=== PATIENT | female | born 1950 | race Caucasian/White ===

== ENCOUNTER 2017-04-21 05:39 | Inpatient (IN) | END 2017-04-22 14:20 | disposition home or self-care (01) | DRG 470 ==

== ENCOUNTER → 2018-06-19 | Outpatient (CLI) | payer MEDICARE, OTHER ==
[~2018-06-19] MED LIST: ESTRADIOL PATCH; GABA-526 PO; METO-448 PO; PROG100C5 PO; SUMA50TA3 PO; ZOLP5TAB7 PO
--- NOTE | 2018-06-19 10:22 | PN ---
Date/Time of Note Date/Time of Note DATE: 06/19/18 TIME: 10:15 Assessment/Plan VTE Prophylaxis Pharmacological prophylaxis: other Assessment/Plan Assessment/Plan 68-year-old female with osteoarthritis of her right hip. She has failed conservative treatment for more than 1 year including medications, injections and physical therapy. The pain is interfering with routine activities and with sleep. The patient would like to proceed with right total hip replacement. Risks and benefits were discussed. Implant materials and surgical techniques were discussed. The patient will be scheduled for right total hip replacement in the next 6-8 weeks. Subjective 24 Hr Interval Summary Free Text/Dictation Bakari Turk is a 68-year-old female who is here for evaluation of right hip pain. The pain has been ongoing for at least 2 years. The pain is increased to a point where it is interfering with routine activities. The pain is located in the groin and radiates down the thigh. The patient also has back problems with previous back surgery. She also has a left hip replacement that was done about 1 year ago. The left hip is doing well. She does feel that the left lower extremity slightly longer than the right. She has a history of previous shoulder surgery as well. She had a right hip arthroscopy about 1-1/2 years ago. She is currently on anti-inflammatory medication. The patient is here for further management Additional Comments Past history is significant for multiple operations including left shoulder arthroscopy, anterior posterior lumbar fusion, hand surgery, cervical spine surgery, right hip labral repair and left total hip replacement Medications include sumatriptan, zolpidem, estrogen and progesterone, metoprolol, meloxicam. She occasionally takes Tylenol arthritis Allergies include cephalosporins, opiates, Cipro and sulfa, Steri-Strips Review of systems is positive for multiple joint pains and back pain. Negative for chest pain, shortness of breath Exam/Review of Systems Exam Vitals Vital signs are stable with blood pressure 130/67, temperature 98.1, respiration 12 and pulse rate 54. Patient is 5 foot 5 and 130 pounds Exam Examination shows a pleasant female. She walks with a slight limp on her right side. Left lower extremity is 5 mm longer than the right. The patient points out that the contour of the left hip is different from that on the right with the greater trochanter being more prominent. Range of motion of the hips is terminally restricted. Right hip range of motion is painful at extremes of rot ation. There is no neurovascular deficit. X-rays of the right hip as well as arthroscopy pictures were reviewed with the patient. There is significant osteoarthritis with loss of joint space and subchondral sclerosis. Arthroscopy pictures show full-thickness loss of cartilage. Lumbar fusion is evident. The left hip replacement appears to be well fixed. There is a small pelvic tilt. LILY ROD Jun 19, 2018 10:22
== END | disposition home or self-care (01) ==
LOC: HKI 10:12
PROVIDERS: ATTEND Orthopaedic Surgery
DX: M16.11 Unilateral primary osteoarthritis, right hip (principal); Z96.642 Presence of left artificial hip joint; Z98.1 Arthrodesis status; Z88.2 Allergy status to sulfonamides
CPT/HCPCS: G0463

== ENCOUNTER 2018-08-10 05:39 | Inpatient (IN) | payer MEDICARE, OTHER ==
[~2018-08-10] VITALS: Ht 165.1 cm; Wt 60.0 kg
[2018-08-10] VITALS (30 sets, daily range): BP systolic 92–123; BP diastolic 44–76; PULSE 56–78; RESP 12–22; Ht 165.1 cm; Wt 60.0 kg
[2018-08-10] MEDS ORDERED: MELO7.5T38 PO (05:47)
[2018-08-10] MEDS ORDERED: CEFAZOLIN 2 GM/50 ML (PMX) 50 ML (FOR WT < 120 KG) IVPB ONE (06:00)
[2018-08-10] MEDS: LACTATED RINGER'S 1,000 ML IV SCH ×4 (06:24→22:18)
[2018-08-10] MEDS ORDERED: ACETAMINOPHEN 1000MG/100ML IV 100 ML IVPB ONE (06:30)
[2018-08-10] MEDS ORDERED: ESTR-32 TD (06:52)
[2018-08-10] MEDS ORDERED: BACITRACIN 50000 UNITS INJ ONE (06:59)
[2018-08-10] MEDS ORDERED: DESFLURANE 15 MIN ONE (07:00)
[2018-08-10] MEDS ORDERED: EPHEDrine 25 MG/5 ML SYG ONE (07:00)
[2018-08-10] MEDS ORDERED: POLYMYXIN B 500000 UNIT INJ ONE (07:01)
--- NOTE | 2018-08-10 07:17 | PREAC ---
Date/Time of Note Date/Time of Note DATE: 08/10/18 TIME: 07:12 Anesthesia Eval and Record Evaluation Time Pre-Procedure Interview DATE: 08/10/18 TIME: 07:12 Age 68 Sex female NPO: 8 hrs Preoperative diagnosis Degenerative Joint Disease Planned procedure Total Hip Arthroplasty Past Medical History Past Medical History: Includes Cardio: HTN (Contrioled with meds) Surgery & Anesthesia Issues No known issue Meds Anticoagulation: No Beta Micha within 24 hr: Yes Reported Medications Estradiol (Estradiol) 1 Each Patch.tdsw, 1 EACH TD TWICE WEEKLY 0.1MG 08/10/18 Meloxicam* (Meloxicam*) 7.5 Mg Tablet, 7.5 MG PO BID, #30 TAB 08/10/18 Metoprolol Tartrate* (Lopressor*) 25 Mg Tab, 25 MG PO BID, #60 TAB 04/19/17 Progesterone,Micronized* (Progesterone*) 100 Mg Capsule, 100 MG PO HS, CAP 04/19/17 Zolpidem Tartrate* (Zolpidem Tartrate*) 5 Mg Tablet, 2.5 MG PO QHS PRN for INSOMNIA, #30 TAB 04/19/17 Sumatriptan Succinate* (Sumatriptan Succinate*) 50 Mg Tablet, 50 MG PO BID PRN for MIGRAINE HEADACHE, TAB May repeat after 2 hours if needed; MAX 200 mg/24 hours 04/19/17 Gabapentin* (Gabapentin*) 600 Mg Tablet, 600 MG PO BID, #60 TAB 04/19/17 Discontinued Reported Medications [Estradiol Patch] No Conflict Check, 1 04/19/17 Current Medications Ropivacaine/ Clonidine/ Epinephrine/ Ketorolac Tromethamine/ Sodium Chloride INTRA-OP ONCE IRR ; Start 08/10/18 at 07:30; Stop 08/10/18 at 07:31 Lactated Ringer's 1,000 ml @ 125 mls/hr Q8H IV Last administered on 08/10/18at 06:24; Admin Dose 125 MLS/HR; Start 08/10/18 at 07:30; Stop 08/10/18 at 19:30 Tranexamic Acid 100 ml @ 200 mls/hr AT INCISION ONCE IVPB ; Start 08/10/18 at 07:30; Stop 08/10/18 at 07:59 Tranexamic Acid 100 ml @ 330 mls/hr AT CLOSURE ONCE IVPB ; Start 08/10/18 at 07:30; Stop 08/10/18 at 07:48 Dexamethasone (Decadron) 4 mg ONCE ONCE IV Last administered on 08/10/18at 06:24; Admin Dose 4 MG; Start 08/10/18 at 07:30; Stop 08/10/18 at 07:31 Meds reviewed: Yes Allergies Coded Allergies: Sulfa (Sulfonamide Antibiotics) (Verified Allergy, Mild, ITCHING AND RASH, 08/10/18) adhesive tape (Unverified Allergy, Unknown, 08/10/18) Cephalosporins (Verified Adverse Reaction, Intermediate, HEADACHE AND DIZZINES, 08/10/18) ciprofloxacin (Verified Adverse Reaction, Mild, HEADACHE, 08/10/18) codeine (Unverified Adverse Reaction, Unknown, NAUSEA VOMITING, 08/10/18) Allergies Reviewed: Yes Labs/Studies Labs Reviewed: Reviewed by anesthesiologist test: N/A Pre-procedure Exam Last vitals Vital Signs Date Temp Pulse Resp B/P (MAP) Pulse Ox O2 O2 Flow FiO2 Time Delivery Rate 08/10/18 98.5 62 18 123/61 96 Room Air 06:29 (81) Airway: Adequate mouth opening Mallampati: Mallampati II Teeth: Normal Lung: Normal Heart: Normal ASA Physical Status ASA physical status: 3 Emergency: None Planned Anesthetic General/MAC: LMA Planned Pain Management Sub-arachniod narcotics Pre-operative Attestations Prior to commencing anesthesia and surgery, the patient was re-evaluated, there was verification of: *The patient's identity *The results of appropriate recent lab work and preoperative vital signs *The above evaluation not changing prior to induction *Anesthetic plan, risk benefits, alternative and complications discussed with patient/family; questions answered; patient/family understands, accepts and wishes to proceed. ALYSE TRIPP MD August 10, 2018 07:16
[2018-08-10] MEDS ORDERED: PROPOFOL 20 ML ONE (07:23)
[2018-08-10] MEDS ORDERED: PHENYLephrine (100 MCG/ML) 10ML SYG ONE (07:24)
[2018-08-10] MEDS ORDERED: MIDAZOLAM 1 MG/ML 2 ML INJ ONE (07:24)
[2018-08-10] MEDS ORDERED: TRANEXAMIC ACID 1GM/100ML(PMX) 200 ML ONE (07:24)
[2018-08-10] MEDS ORDERED: VANCOMYCIN 1 GM (PMX) 250 ML ONE (07:24)
[2018-08-10] MEDS ORDERED: TRANEXAMIC ACID 1GM/100ML(PMX) 100 ML AT INCISION X1 IVPB ONE (07:30)
[2018-08-10] MEDS ORDERED: DEXAMETHASONE 4 MG/ML 1 ML INJ IV ONE (07:30)
[2018-08-10] MEDS ORDERED: ACETAMINOPHEN 500 MG TAB PO ONE (07:30)
--- NOTE | 2018-08-10 07:41 | HPN ---
Date/Time of Note Date/Time of Note DATE: 08/10/18 TIME: 07:41 Interval H&P Admission Note Pt. seen H&P reviewed: No system changes LILY ROD August 10, 2018 07:41
[2018-08-10] MEDS ORDERED: DEXAMETHASONE 4 MG/ML 5 ML INJ ONE (08:32)
[2018-08-10] MEDS ORDERED: KETOROLAC 30 MG INJ ONE (09:07)
[2018-08-10] MEDS ORDERED: KETOROLAC 30 MG INJ IV PRN (09:30)
[2018-08-10] MEDS ORDERED: ACETAMINOPHEN 500 MG TAB PO PRN (09:30)
[2018-08-10] MEDS: TRANEXAMIC ACID 1GM/100ML(PMX) 100 ML AT CLOSURE X1 IVPB ONE ×2 (09:35)
[2018-08-10] MEDS ORDERED: EPINEPHrine 0.1 MG/ML SYG ONE (09:39)
--- NOTE | 2018-08-10 09:44 | SIPON ---
Date/Time of Note Date/Time of Note DATE: 08/10/18 TIME: 09:43 Operative Report Preoperative Diagnosis Right hip osteoarthritis Postoperative Diagnosis Same Operation/Procedure Performed Right total hip replacement Surgeon see signature line assistant store leader MILA Aguilar Anesthesia: spinal Estimated blood loss: 150 - 200 ml's Transfusion Required none Specimen Bone Grafts/Implants Michael hip, size 5 stem, 52 mm [place] cup, 36 mm +5 ceramic head Complications none LILY ROD August 10, 2018 09:44
--- NOTE | 2018-08-10 09:47 | OPR ---
Date/Time of Note Date/Time of Note DATE: 08/10/18 TIME: 09:44 Operative Report Procedure Date: August 10, 2018 Preoperative Diagnosis Right hip osteoarthritis Postoperative Diagnosis Same Operation/Procedure Performed Right total hip replacement Surgeon see signature line [place] Performer MILA Aguilar Anesthesia Type: spinal Estimated Blood Loss: 150 - 200 ml's Transfusion none Specimen Bone Grafts/Implants Michael hip, size 5 stem, 52 mm [place] cup, 36+5 ceramic head Tubes/Drains None Complications none Pt Condition Post Procedure: stable Disposition: PACU Indications The patient is a 68-year-old female with advanced osteoarthritis of her right hip Procedure Description Patient was placed supine on the operating room table. The right hip was prepped and draped in usual manner. The right hip was approached anteriorly. The plane between the sartorius and tensor fascia baldomero was developed in a blunt fashion. Significant scarring was noted from previous surgery. Anterior hip capsule was opened and advanced osteoarthritis was encountered with loss of cartilage on the femoral head as well as shallow acetabulum. Evidence of labral repair was noted. The neck cut was made 1.5 cm proximal to the lesser trochanter as previously templated. Reaming of the acetabulum was done with [place] reamers up to a size 51. A 52 trial cup was well fitting. The 52 [place] cup was placed in 40 degrees of abduction and 20 degrees of anteversion. One screw was used to enhance fixation. A liner was placed to accommodate a 36 mm femoral head. The IM canal of the femur was prepared for Actis stems. A size 5 stem was well fitting. This was placed with a standard offset neck and 36 mill meter head for a trial reduction. The reduction was sta ble. Leg length was felt to be equal. X-rays confirm proper alignment of the implants and leg length. Offset was symmetrical. The hip was irrigated and trials were removed. The final implants were placed and the wound injected with pain cocktail. Hemostasis was confirmed with aqua Mantis and the wound closed in layers using #1 strata fix for deep fascia, 2-0 Vicryl for subcutaneous tissue and 3-0 Monocryl for the skin. Patient was transferred to the recovery room in stable condition LILY ROD August 10, 2018 09:47
[2018-08-10] MEDS ORDERED: NALOXONE (0.4 MG/ML) INJ IV PRN (10:00)
[2018-08-10] MEDS ORDERED: NACL 0.9% 3 ML SYG IV SCH (10:00)
[2018-08-10] MEDS ORDERED: oxyCODONE 5 MG TAB PO PRN (10:00)
--- NOTE | 2018-08-10 10:42 | PAC ---
Date/Time of Note Date/Time of Note DATE: 08/10/18 TIME: 10:41 Post-Anesthesia Notes Post-Anesthesia Note Last documented vital signs Vital Signs Date Temp Pulse Resp B/P (MAP) Pulse Ox O2 O2 Flow FiO2 Time Delivery Rate 08/10/18 98.5 62 18 123/61 96 Room Air 06:29 (81) Activity: WNL Respiratory function: WNL Cardiovascular function: WNL Mental status: Baseline Pain reasonably controlled: Yes Hydration appropriate: Yes Nausea/Vomiting absent: Yes ALYSE TRIPP MD August 10, 2018 10:42
[2018-08-10] MEDS: CLINDAMYCIN 900 MG/D5W (PMX) 50 ML IVPB SCH ×2 (11:27→20:29)
[2018-08-10] MEDS: KETOROLAC 15 MG INJ IV PRN ×3 (11:58→23:09)
[2018-08-10] MEDS: oxyCODONE 5 MG TAB PO PRN ×3 (11:59→20:18)
[2018-08-10] MEDS ORDERED: SUMATRIPTAN 50 MG TAB PO PRN (12:00)
[2018-08-10] MEDS ORDERED: ZOLPIDEM 5 MG TAB PO PRN (12:00)
[2018-08-10] MEDS ORDERED: GABAPENTIN 100 MG CAP PO SCH (13:00)
[2018-08-10] MEDS: GABAPENTIN 100 MG CAP PO SCH ×2 (13:36→20:29)
[2018-08-10] MEDS ORDERED: DIPHENHYDRAMINE 50 MG INJ IV PRN (16:00)
[2018-08-10] MEDS ORDERED: PROGESTERONE 100 MG CAP PO SCH (21:00)
[2018-08-10] MEDS: METOPROLOL 25 MG TAB PO SCH (21:00)
[2018-08-10] MEDS ORDERED: GABAPENTIN 300 MG CAP PO SCH (21:00)
[2018-08-10] MEDS ORDERED: MAGNESIUM HYDROXIDE 30ML CUP PO PRN (21:00)
--- NOTE | 2018-08-10 23:45 | HP ---
DATE OF ADMISSION: 08/10/2018 CHIEF COMPLAINT: Right hip pain. HISTORY OF PRESENT ILLNESS: The patient is a 68-year-old female with a history of osteoart hritis, bilateral hip who underwent left hip replacement by Dr. Josiah love in April 2017. The patient subsequently saw Dr. Rod for her right hip osteoarthritis with worsening pain. The p josee underwent right total hip replacement. The patient also has history of hypertension and has g ross post-menopausal symptoms for which she takes estrogen patch and p.o. progesterone. The patient denies any chest pain or shortness of breath. No history of nausea, vomiting. No history of abdomin al pain. No history of leg edema. No history of numbness, tingling in any extremities. No history of any gross focal deficit, although exam was limited due to recent surgery. No history of cough. N o history of recent dysuria or hematuria. No history of dizziness or syncope. Other than postoperat latricia pain, rest of review of systems unremarkable. REVIEW OF SYSTEMS: A total of 12 systems were reviewed, all pertinent positive and negative findings have been described in HPI. Rest of the review of systems is unremarkable. PAST MEDICAL HISTORY: As stated above. In addition, the patient has a history of migraine headache for which she uses Imitrex on p.r.n. basis. PAST SURGICAL HISTORY: The patient is status post lumbar laminectomy in 2002, lumbar fusion in 2012, also had shoulder surgery for spurs back in 2005. FAMILY HISTORY: Father is . Mother is of natural causes. MEDICATIONS: Medications list reviewed. SOCIAL HISTORY: No smoking, alcohol; a glass of wine every night. ALLERGIES: 1. SULFA. 2. KEFLEX. 3. PENICILLIN. 4. ADHESIVE TAPE. 5. CIPRO. 6. CODEINE. PHYSICAL EXAMINATION: GENERAL: The patient was awake, alert, fairly oriented. VITAL SIGNS: Temperature 97.9, pulse 73, respirations 17, blood pressure 96/55, O2 saturation 96 on room air. HEENT: Atraumatic, normocephalic. Conjunctivae are normal. Extraocular movements are intact. Orop harynx is grossly negative. Pupils are round and react to light. NECK: Supple, no mass, no thyromegaly. CHEST: Fairly clear. No use of accessory muscles. CARDIOVASCULAR: S1, S2 normal. No murmur. ABDOMEN: Soft, nondistended, nontender. Bowel sounds plus. EXTREMITIES: No leg edema. Pedal pulse palpable. SKIN: Without acute rash. NEUROLOGIC: The patient is awake, alert, fairly oriented with no gross focal deficit, although exam was limited due to the patient has recently has surgery. LABORATORY DATA: Recent labs done as an outpatient revealed WBC is 7.7, hemoglobin 10.4, platelet 17 8, ALT 7, AST 17, BUN 9, creatinine 0.7, glucose 89. Sodium 138, potassium 3.7. TSH 3. Free T4 8. IMAGING STUDIES: EKG normal sinus rhythm, no acute ST changes. Chest x-ray: No acute cardiopulmona ry disease. IMPRESSION: 1. Right hip osteoarthritis status post right total knee replacement. The patient will be started o n Celebrex, gabapentin, oxycodone and IV Toradol for pain control. We will also give Protonix for GI prophylaxis. 2. Hypertension. We will resume Lopressor tomorrow since today her blood pressure is less than 100. We will resume Lopressor as tolerated. 3. Postmenopausal. The patient already has a Estradiol patch and we will continue progesterone upon discharge. 4. Migraine, stable. Continue Imitrex on p.r.n. basis. 5. For deep vein thrombosis prophylaxis, the patient has been started on aspirin 81 mg twice a day. Plan of care discussed with patient's and nursing staff in recovery room. We will do follow up CBC and BMP tomorrow and PT evaluation is pending. We will continue to follow her from [facility]. Further recommendations will depend on the patient's hospital course and recommendation of Dr. Griffin from orthopedic standpoint. Dictated By: CHRISTI BLOOD MD AB/YADIEL Conf#: [id number] DID#: [id number] CC: CHRISTI BLOOD MD; LILY ROD MD;*End*
[2018-08-11] MEDS: oxyCODONE 5 MG TAB PO PRN ×3 (03:39→12:03)
[2018-08-11 04:12] VITALS: BP 110/53; PULSE 72; RESP 18
[2018-08-11] MEDS ORDERED: PANTOPRAZOLE (EC) 40 MG TAB PO SCH (06:00)
[2018-08-11 08:03] VITALS: BP 104/53; PULSE 71; RESP 18
[2018-08-11] MEDS ORDERED: DOCUSATE SODIUM 100 MG CAP PO SCH (09:00)
[2018-08-11] MEDS ORDERED: ASPIRIN (EC) 81 MG TAB PO SCH (09:00)
[2018-08-11] MEDS ORDERED: ESTRADIOL 0.1 MG/24 HR PATCH TRANSDERM SCH (09:00)
[2018-08-11] MEDS: GABAPENTIN 100 MG CAP PO SCH ×2 (09:38→12:52)
[2018-08-11] MEDS: METOPROLOL 25 MG TAB PO SCH (09:39)
[2018-08-11] MEDS: KETOROLAC 15 MG INJ IV PRN (09:43)
[2018-08-11] MEDS ORDERED: ONDANSETRON 4 MG INJ IV PRN (10:00)
[2018-08-11] MEDS: LACTATED RINGER'S 1,000 ML IV SCH (10:48)
[2018-08-11] MEDS ORDERED: CELECOXIB 100 MG CAP PO SCH (11:00)
--- NOTE | 2018-08-11 11:38 | PDOCDIS ---
Discharge Instructions CONDITION [id number] Patient Condition: [id number] Stable HOME CARE INSTRUCTIONS: [id number] Diet Instructions: [id number] Regular ACTIVITY: [id number] Activity Restrictions: [id number] Slowly Increase Activity Rest between Activity Avoid heavy lifting Do not Drive Avoid Heavy Housework [id number] Bathing Restrictions: [id number] Sponge Bath FOLLOW UP/APPOINTMENTS Follow-up Plan FU with PMD FU with ortho-as recommended Call 911 or go to the nearest hospital if symptoms get worse Patient verbalized understanding dc instructions MARCIA CHÁVEZ August 11, 2018 11:38
--- NOTE | 2018-08-11 11:43 | PN ---
Date/Time of Note Date/Time of Note DATE: 08/11/18 TIME: 11:42 Assessment/Plan VTE Prophylaxis Risk score (from Nsg)>0 risk: 5 SCD applied (from Nsg): Yes Lines/Catheters IV Catheter Type (from Nrsg): Saline Lock Urinary Cath still in place: No Assessment/Plan Assessment/Plan 1. Right hip osteoarthritis status post right total knee replacement. The patient will be started on Celebrex, gabapentin, oxycodone and IV Toradol for pain control. We will also give Protonix for GI prophylaxis. 2. Hypertension. 3. Postmenopausal. 4. Migraine, stable. Continue Imitrex on p.r.n. basis. 5. For deep vein thrombosis prophylaxis, the patient has been started on aspirin 81 mg twice a day. Result Diagram: 08/11/1840808/11/18408 Results 24hrs Laboratory Tests Test 08/11/18 04:09 08/11/18 06:46 White Blood Count 14.4 #H Red Blood Count 3.55 L Hemoglobin 11.7 L Hematocrit 33.3 L Mean Corpuscular Volume 93.8 Mean Corpuscular Hemoglobin 33.0 Mean Corpuscular Hemoglobin Concent 35.1 Red Cell Distribution Width 12.3 Platelet Count 164 Mean Platelet Volume 11.2 H Immature Granulocytes % 0.500 H Neutrophils % 81.9 H Lymphocytes % 10.5 L Monocytes % 6.9 Eosinophils % 0.1 Basophils % 0.1 Nucleated Red Blood Cells % 0.0 Immature Granulocytes # 0.070 H Neutrophils # 11.8 H Lymphocytes # 1.5 Monocytes # 1.0 H Eosinophils # 0.0 Basophils # 0.0 Nucleated Red Blood Cells # 0.0 Sodium Level 137 Potassium Level 4.0 Chloride Level 105 Carbon Dioxide Level 27 Anion Gap 5 Blood Urea Nitrogen 13 Creatinine 0.66 Est Glomerular Filtrat Rate mL/min > 60 Glucose Level 101 Calcium Level 8.4 Lab Scanned Report REFERENCE LAB Exam/Review of Systems Exam Vitals Vital Signs Date Temp Pulse Resp B/P (MAP) Pulse Ox O2 O2 Flow FiO2 Time Delivery Rate 08/11/18 98.3 71 18 104/53 96 Room Air 08:03 (70) 08/10/18 2.0 10:46 Intake and Output 08/10/18 08/10/18 08/11/18 1515:00 23:00 07:00 IntakeIntake Total 2200 ml 1130 ml 1500 ml OutputOutput Total 20 ml BalanceBalance 2180 ml 1130 ml 1500 ml Results Results 24hrs Laboratory Tests Test 08/11/18 04:09 08/11/18 06:46 White Blood Count 14.4 #H Red Blood Count 3.55 L Hemoglobin 11.7 L Hematocrit 33.3 L Mean Corpuscular Volume 93.8 Mean Corpuscular Hemoglobin 33.0 Mean Corpuscular Hemoglobin Concent 35.1 Red Cell Distribution Width 12.3 Platelet Count 164 Mean Platelet Volume 11.2 H Immature Granulocytes % 0.500 H Neutrophils % 81.9 H Lymphocytes % 10.5 L Monocytes % 6.9 Eosinophils % 0.1 Basophils % 0.1 Nucleated Red Blood Cells % 0.0 Immature Granulocytes # 0.070 H Neutrophils # 11.8 H Lymphocytes # 1.5 Monocytes # 1.0 H Eosinophils # 0.0 Basophils # 0.0 Nucleated Red Blood Cells # 0.0 Sodium Level 137 Potassium Level 4.0 Chloride Level 105 Carbon Dioxide Level 27 Anion Gap 5 Blood Urea Nitrogen 13 Creatinine 0.66 Est Glomerular Filtrat Rate mL/min > 60 Glucose Level 101 Calcium Level 8.4 Lab Scanned Report REFERENCE LAB Medications Medication Current Medications Acetaminophen (Tylenol Tab) 500 mg Q4H PRN PO .PAIN 1-3; Start 08/10/18 at 09:30 Lactated Ringer's 1,000 ml @ 80 mls/hr [id number] IV Last administered on 08/10/18at 17:31; Admin Dose 80 MLS/HR; Start 08/10/18 at 09:48 Oxycodone HCl (Roxicodone) 10 mg Q4H PRN PO .PAIN Last administered on 08/11/18at 07:52; Admin Dose 10 MG; Start 08/10/18 at 10:00 Oxycodone HCl (Roxicodone) 5 mg Q4H PRN PO .PAIN; Start 08/10/18 at 10:00 Ondansetron HCl (Zofran Inj) 4 mg Q4H PRN IV NAUSEA/VOMITING; Start 08/11/18 at 10:00 Celecoxib (Celebrex) 100 mg BID PO ; Start 08/11/18 at 11:00 Pantoprazole (Protonix Tab) 40 mg DAILY@06 PO Last administered on 08/11/18 06:14; Admin Dose 40 MG; Start 08/11/18 at 06:00 Docusate Sodium (Colace) 200 mg BID PO Last administered on 08/11/18 06:22; Admin Dose 200 MG; Start 08/11/18 at 09:00; Stop 08/13/18 at 21:01 Magnesium Hydroxide (Milk Of Mag) 30 ml HS PRN PO .CONSTIPATION; Start 08/10/18 at 21:00 Naloxone HCl (Narcan) 0.2 mg Q2M PRN IV .RESP RATE; Start 08/10/18 at 10:00 IV Flush (NS 3 ml) 3 ml per protocol IV ; Start 08/10/18 at 10:00 Aspirin (Halfprin) 81 mg BID PO Last administered on 08/11/18 09:37; Admin Dose 81 MG; Start 08/11/18 at 09:00 Metoprolol Tartrate (Lopressor) 25 mg BID PO Last administered on 08/11/18at 09:39; Admin Dose 25 MG; Start 08/10/18 at 21:00 Sumatriptan Succinate (Imitrex) 50 mg BID PRN PO MIGRAINE HEADACHE; Start at 12:00 Zolpidem Tartrate (Ambien) 2.5 mg QHS PRN PO INSOMNIA; Start 08/10/18 at 12:00 Gabapentin (Neurontin) 100 mg TID PO Last administered on 08/11/18at 09:38; Admin Dose 100 MG; Start 08/10/18 at 13:00 Diphenhydramine HCl (Benadryl) 25 mg Q6H PRN IV ITCHINESS Last administered on 08/10/18at 22:01; Admin Dose 25 MG; Start 08/10/18 at 16:00 MARCIA CHÁVEZ August 11, 2018 11:43
--- NOTE | 2018-08-11 13:26 | DS ---
Date/Time of Note Date/Time of Note DATE: 08/11/18 TIME: 13:26 Discharge Summary Admission/Discharge Info Admit Date/Time August 10, 2018 at 05:39 Discharge Date/Time Patient Condition: Stable Home Meds Reported Medications Estradiol (Estradiol) 1 Each Patch.tdsw, 1 EACH TD TWICE WEEKLY 0.1MG 08/10/18 Meloxicam* (Meloxicam*) 7.5 Mg Tablet, 7.5 MG PO BID, #30 TAB 08/10/18 Metoprolol Tartrate* (Lopressor*) 25 Mg Tab, 25 MG PO BID, #60 TAB 04/19/17 Progesterone,Micronized* (Progesterone*) 100 Mg Capsule, 100 MG PO HS, CAP 04/19/17 Zolpidem Tartrate* (Zolpidem Tartrate*) 5 Mg Tablet, 2.5 MG PO QHS PRN for INSOMNIA, #30 TAB 04/19/17 Sumatriptan Succinate* (Sumatriptan Succinate*) 50 Mg Tablet, 50 MG PO BID PRN for MIGRAINE HEADACHE, TAB May repeat after 2 hours if needed; MAX 200 mg/24 hours 04/19/17 Gabapentin* (Gabapentin*) 600 Mg Tablet, 600 MG PO BID, #60 TAB 04/19/17 Discontinued Reported Medications [Estradiol Patch] No Conflict Check, 1 04/19/17 Follow-up Plan FU with PMD FU with ortho-as recommended Call 911 or go to the nearest hospital if symptoms get worse Patient verbalized understanding dc instructions Primary Care Provider Not On Staff Doctor Pending Labs Laboratory Tests Test 08/11/18 04:09 08/11/18 06:46 White Blood Count 14.4 10^3/ul (4.8-10.8) Red Blood Count 3.55 10^6/ul (4.20-5.40) Hemoglobin 11.7 g/dl (12.0-16.0) Hematocrit 33.3 % (37.0-47.0) Mean Corpuscular Volume 93.8 fl (82.0-101.0) Mean Corpuscular Hemoglobin 33.0 pg (29.0-33.0) Mean Corpuscular 35.1 g/dl (32.0-37.0) Hemoglobin Concent Red Cell Distribution Width 12.3 % (11.5-14.5) Platelet Count 164 10^3/UL (140-415) Mean Platelet Volume 11.2 fl (7.4-10.4) Immature Granulocytes % 0.500 % (0.001-0.429) Neutrophils % 81.9 % (39.0-77.0) Lymphocytes % 10.5 % (15.0-51.0) Monocytes % 6.9 % (0.0-11.0) Eosinophils % 0.1 % (0.0-7.0) Basophils % 0.1 % (0.0-2.0) Nucleated Red Blood Cells % 0.0 /100WBC (0.0-0.0) Immature Granulocytes # 0.070 10^3/ul (0.0-0.031) Neutrophils # 11.8 10^3/ul (1.6-7.5) Lymphocytes # 1.5 10^3/ul (0.8-2.9) Monocytes # 1.0 10^3/ul (0.3-0.9) Eosinophils # 0.0 10^3/ul (0.0-0.5) Basophils # 0.0 10^3/ul (0.0-0.1) Nucleated Red Blood Cells # 0.0 10^3/ul (0.0-0.0) Sodium Level 137 mmol/L (135-144) Potassium Level 4.0 mmol/L (3.5-5.1) Chloride Level 105 mmol/L (97-110) Carbon Dioxide Level 27 mmol/L (21-31) Anion Gap 5 (5-13) Blood Urea Nitrogen 13 mg/dl (7-20) Creatinine 0.66 mg/dl (0.44-1.00) Est Glomerular Filtrat > 60 mL/min (>60) Rate mL/min Glucose Level 101 mg/dl (70-220) Calcium Level 8.4 mg/dl (8.4-10.2) Lab Scanned Report REFERENCE LAB [id number] MARCIA CHÁVEZ August 11, 2018 13:26
== END 2018-08-11 14:35 | disposition home or self-care (01) | DRG 470 ==
LOC: REC 05:39 → MS1 13:42
PROVIDERS: ADMIT Orthopaedic Surgery; ATTEND Orthopaedic Surgery
PROC: 0SR904A Replacement of Right Hip Joint with Ceramic on Polyethylene Synthetic Substitute, Uncemented, Open Approach (ICD-10-PCS; principal; 2018-08-10 07:30)
DX: M16.11 Unilateral primary osteoarthritis, right hip (principal); I10 Essential (primary) hypertension; N95.1 Menopausal and female climacteric states
CPT/HCPCS: 73530; 80048; 85025; 85610; 86900; 86901; 87081; 88304; 88311; 97116; 97161; 97167; C1713; C1776; J0131; J0171; J0690; J0735; J1100; J1200; J1885; J2250; J2370; J2795; J3370; J7120